=== PATIENT | female | born 1955 | race Caucasian/White ===

== ENCOUNTER → 2021-08-01 09:12 | Outpatient (CLI) | payer OTHER, SELFPAY ==
[2021-08-06 10:36] LABS: Ca oxalate monohydr 10 % (.); Size 6x4 mm (.); Uric Acid 90 % (.)
== END ==
PROVIDERS: PCP Physician Assistant; Visit Provider Specialist
DX: N20.0 Calculus of kidney (principal); R30.0 Dysuria; N23 Unspecified renal colic; Z87.442 Personal history of urinary calculi
CPT/HCPCS: 81002; 82365; 87086; 99215

== ENCOUNTER → 2021-08-28 10:54 | Outpatient (CLI) | payer OTHER, SELFPAY ==
[2021-08-28 11:35] LABS: COVID19 -Nasal RAPID Negative (Negative)
== END ==
PROVIDERS: PCP Physician Assistant; Visit Provider Specialist
DX: Z20.822 Contact with and (suspected) exposure to COVID-19 (principal)
CPT/HCPCS: 87635; C9803

== ENCOUNTER 2021-08-31 07:51 | Day surgery (SDC) | payer OTHER, SELFPAY ==
[2021-08-30 08:31] VITALS: BMI 34.0
--- NOTE | 2021-08-31 | DI.RAD.S_ITS ---
PROCEDURE: XR KUB INDICATIONS: Left nephrolithiasis TECHNIQUE: One view of the abdomen acquired. COMPARISON: [facility], CT, CT KUB, 06/14/2021, 7:34. FINDINGS: Surgical changes and devices: None. Bowel: Bowel gas pattern is normal. Soft tissues: No suspicious abdominal calcifications. Visualized solid organ contours appear normal in size. Bones: No suspicious bony lesions. IMPRESSION: No left upper quadrant calcifications are visualized to suggest nephrolithiasis. Dictated by: Ghislaine Coats M.D. on 08/31/2021 at 10:58 Approved by: Ghislaine Coats M.D. on 08/31/2021 at 10:58
[2021-08-31 08:24] VITALS: BP 140/75; PULSE 65; RESP 16; TEMP 36.1; O2SAT 98; BMI 33.7
[2021-08-31] MEDS: LACTATED RINGERS 1,000 ML 25 ML IV (08:34)
--- NOTE | 2021-08-31 09:32 | PM.PREOP ---
Pre-operative Note COVID-19 Criteria for continued procedure: Possibility delay results in more complex future surgery or treatment, Deterioration of the patient's condition or overall health, Delay expected to result in less-positive ultimate med/surg outcome and Non-surgical alternatives not available or appropriate per current SOC Interval Note History & Physical reviewed/Exam performed by Physician: Yes Changes to H&P: No
[2021-08-31] MEDS: CEFAZOLIN 2 GM/20 ML SYRINGE IV (10:06)
--- NOTE | 2021-08-31 10:13 | SUR.OPER ---
Lithotomy on padded OR bed, head on pillow, arms secured on padded arm boards at <90 degrees abduction. Legs secured in padded yellow fins stirrups.
[2021-08-31] MEDS: IOPAMIDOL 50 ML VIAL INJ (10:21)
[2021-08-31] MEDS: BELLADONNA/OPIUM SUPPOSITORIES 1 EACH PR (10:22)
--- NOTE | 2021-08-31 11:19 | PM.OP.1 ---
Operative Date/Time/Diagnoses Date of procedure: 08/31/21 Time of procedure: 11:19 Pre-op diagnosis: 1. 1.1 cm left inter polar renal calculus. 2. History of left renal colic. Post-op diagnosis: same Procedure & Clinicians Procedure: 1. Cystoscopy/left retrograde pyelogram. 2. Cystoscopy /left ureteroscopic intrarenal laser lithotripsy. 3. Cystoscopy/placement left ureteral stent (6 [place]ian by 22-32 cm multi-length). Same procedure as scheduled: Yes Indications: 1. 1.1 cm left interpolar renal calculus. 2. History of left renal colic. Surgeon: Lisandro Leonard Click Yes if Unassisted: Yes Anesthesia Type: General Operative Notes Findings: 1. Urethra -normal. 2. Bladder-trace trabeculation. Grade 2 +cystocele with depression of the trigone and bladder floor. Normal appearing ureteral orifices bilaterally. 3. Bifed left renal pelvic anatomy. Index calculus was located in an upper calyx of the lower pole moiety. Closure Type: not applicable Specimen(s): other (Stone sand in fragments from left kidney.) Applied: other (6 [place]ian by 22-32 cm multi-length stent) Estimated Blood Loss (mL): 2 Blood products transfused: none Procedure in detail: The patient was positioned in supine was administered general anesthesia. She then repositioned semi lithotomy and the lower abdomen genitalia, groin and vaginal vault prepped and draped in sterile fashion. Twenty-two [place]ian panendoscope was then passed lower urinary tract with the findings as described above. A 0.35 hybrid guidewire was then advanced through the working channel of this sheets endoscope and advanced to left collecting system under direct and fluoroscopic guidance. The panendoscope was backloaded off the hybrid guidewire. A dual lumen ureteral access sheath was then advanced over this wire under fluoroscopic guidance. A 2nd 0.35 hybrid wire was then advanced through the accessory channel of the dual lumen ureteral access sheath, again under fluoroscopic guidance. Next, the flexible ureteral scope was advanced over 1 of the hybrid guidewires, and the other hybrid guidewire was secured to the surgical drape. The flexible ureteral scope was then advanced proximally under fluoroscopic guidance. That guidewire was then backloaded other ureteral scope. A retrograde pyelogram was then performed with the findings as described above. Search for the stone was undertaken at was readily identified. A 200 micron laser fiber was then requested. All operating room personnel and patient were fitted with laser safety eyewear. Laser lithotripsy was then commenced with excellent resultant fragmentation into fine pieces and dust. The flexible ureteral scope was then backloaded onto the collecting system. The panendoscope was then front loaded on they safety guidewire. Under direct and fluoroscopic guidance a 6 [place]ian by 22-32 cm multi-length stent was positioned with the proximal coil in the upper pole moiety get the kidney. The bladder was then drained completely and all instrumentation removed. Fragments and dust collected in the surgical drape drain was then submitted to the laboratory for analysis. Patient was then repositioned supine, awakened, transferred to [facility], and transferred to PACU. Complications: none Post-operative Condition: stable Disposition: PACU Plan for aftercare: Discharge home.
[2021-08-31 11:22] VITALS: BP 121/79; PULSE 75; RESP 13; TEMP 36.4; O2SAT 92
[2021-08-31 11:27] VITALS: BP 114/68; PULSE 70; RESP 14; O2SAT 93
[2021-08-31 11:32] VITALS: BP 105/58; PULSE 64; RESP 16; O2SAT 93
[2021-08-31 11:37] VITALS: BP 101/49; PULSE 60; RESP 14; O2SAT 97
[2021-08-31] MEDS: FUROSEMIDE 20 MG/2 ML VIAL IV (11:47)
[2021-08-31 11:52] VITALS: BP 116/63; PULSE 61; RESP 16; O2SAT 99
--- NOTE | 2021-08-31 12:13 | SUR.PHASEI ---
1200: Pt A&Ox4, VSS, denies any distress, has voided and ready to discharge home. Report given to ARYA Maradiaga using SBAR with time allowed for questions. Handoff to ARYA Maradiaga.
[2021-09-06 10:35] LABS: Ca oxalate monohydr 10 % (.); Size <1 mm (.); Uric Acid 90 % (.)
== END 2021-08-31 12:20 | disposition home or self-care (01) ==
PROVIDERS: PCP Physician Assistant; Referring Provider Specialist; Visit Provider Specialist
PROC: (CPT 52356; principal; 2021-08-31 10:15)
DX: N20.0 Calculus of kidney (principal); N81.10 Cystocele, unspecified; I10 Essential (primary) hypertension; K21.9 Gastro-esophageal reflux disease without esophagitis
CPT/HCPCS: 52356; 74018; 76000; 82365; C1771; J0690; J1100; J1885; J1940; J2250; J2405; J2704; J3010

== ENCOUNTER → 2023-01-19 14:24 | Outpatient (CLI) | payer OTHER, SELFPAY ==
--- NOTE | 2023-01-19 14:27 | DI.RAD.S_ITS ---
PROCEDURE: XR KUB INDICATIONS: Kidney Stones TECHNIQUE: One view of the abdomen acquired. COMPARISON: [facility], CR, XR KUB, 08/31/2021, 7:56. FINDINGS: Surgical changes and devices: Surgical clips are present at the gallbladder fossa. Bowel: Bowel gas pattern is normal. Soft tissues: No suspicious abdominal calcifications. Visualized solid organ contours appear normal in size. Bones: No suspicious bony lesions. IMPRESSION: No calcifications visualized to suggest nephrolithiasis or ureterolithiasis. Dictated by: Ghislaine Coats M.D. on 01/19/2023 at 19:23 Approved by: Ghislaine Coats M.D. on 01/19/2023 at 19:24
== END ==
PROVIDERS: PCP Physician Assistant; Referring Provider Specialist; Visit Provider Specialist
DX: N20.0 Calculus of kidney (principal)
CPT/HCPCS: 74018

== ENCOUNTER → 2023-02-11 16:46 | Outpatient (CLI) | payer OTHER, SELFPAY ==
--- NOTE | 2023-02-11 16:47 | DI.US.S_ITS ---
PROCEDURE: US RENAL COMPLETE INDICATIONS: RENAL CALCULUS TECHNIQUE: Real-time scanning was performed of the kidneys and bladder, with image documentation. COMPARISON: None. FINDINGS: Kidneys: Kidneys are normal in size. Right kidney measures 11.9 cm long; left kidney measures 9.0 cm long. Right renal cortical thickness is 1.3 cm; left renal cortical thickness is 1.1 cm. Renal cortical echotexture is normal. No hydronephrosis or nephrolithiasis. No suspicious solid mass lesions. Bladder: Pre-void bladder volume is 275.7 mL. Post-void residual is 0.9 mL. Pre-void images demonstrate no intraluminal masses or stones. On pre-void images, bilateral ureteral jets are noted with color Doppler interrogation. (Of note, ureteral jets may not be detectable in up to 25% of cases due to insufficient differences in specific gravity between ureteral and bladder urine). Miscellaneous: No free pelvic fluid. IMPRESSION: 1. No hydronephrosis or nephrolithiasis. 2. No postvoid residual. Dictated by: Ghislaine Coats M.D. on 02/12/2023 at 10:38 Approved by: Ghislaine Coats M.D. on 02/12/2023 at 10:40
== END ==
PROVIDERS: PCP Physician Assistant; Referring Provider Specialist; Visit Provider Specialist
DX: N20.0 Calculus of kidney (principal)
CPT/HCPCS: 76770